=== PATIENT | male | born 1975 | race Hispanic/Latino ===

== ENCOUNTER 2020-02-13 20:15 | Observation (INO) | payer OTHER ==
[~2020-02-13] VITALS: Ht 182.9 cm; Wt 113.4 kg
[2020-02-13] MEDS ORDERED: ACETAMINOPHEN EXTRA STRENGTH 500 MG TABLET ONE (21:02)
[2020-02-13] MEDS ORDERED: GUAIFENESIN-CODEINE 5 ML SYRUP ONE (21:03)
[2020-02-13 21:22] LABS: APPEARANCE,URINE Clear (CLEAR); BILIRUBIN,URINE Negative (NEGATIVE); COLOR,URINE Yellow (YELLOW); GLUCOSE, URINE (UA) Negative (NEGATIVE); KETONES,URINE Negative (NEGATIVE); LEUKOCYTE ESTERASE ,URINE Negative (NEGATIVE); NITRATE,URINE Negative (NEGATIVE); OCCULT BLOOD,URINE Negative (NEGATIVE); PROTEIN,URINE POS 1+ mg/dL (NEGATIVE)
[2020-02-13 21:45] LABS: BACTERIA,URINE Rare /HPF (None Seen); RBC,URINE 0-1 /HPF (0-1); SQUAMOUS EPITHELIAL CELL,UR Rare /HPF (0-2); WBC,URINE 0-1 /HPF (0-1)
[2020-02-13 21:46] LABS: MUCUS,URINE Rare LPF (None Seen)
[2020-02-13] MEDS ORDERED: DEXAMETHASONE SOD PHOSPHATE 10MG/ML 1ML VIAL ONE (22:09)
[2020-02-13] MEDS ORDERED: CEFTRIAXONE SODIUM 1 GM ONE (22:10)
[2020-02-13] MEDS ORDERED: AZITHROMYCIN 250 MG TABLET PO ONE (22:10)
[2020-02-13 22:44] LABS: BASOPHILS % (AUTO) 0.1 % (0.0-5.0); EOSINOPHILS % (AUTO) 1.5 % (0.0-8.0); HEMATOCRIT 46.6 % (42-54); LYMPHOCYTES % (AUTO) 25.1 % (21.0-51.0); MEAN CORPUSCULAR HEMOGLOBIN 30.6 pg (27.0-33.0); MEAN CORPUSCULAR VOLUME 87.6 fL (79-99); MONOCYTES % (AUTO) 6.9 % (3.0-13.0); NEUTROPHILS % (AUTO) 65.9 % (40.0-77.0); PLATELET COUNT (AUTO) 300 K/uL (130-400); RED BLOOD CELL COUNT(AUTO) 5.32 MIL/uL (4.50-6.20); RED CELL DISTRIBUTION WIDTH 12.1 % (11.0-15.5)
[2020-02-13 23:01] LABS: CREATININE 1.1 mg/dL (0.5-1.5)
[2020-02-13 23:06] LABS: ALBUMIN 3.5 g/dL (3.5-5.0); BILIRUBIN,TOTAL 0.4 mg/dL (0.2-1.0); CRP QUANTITATIVE 40.2 mg/L (0.00-9.0); TOTAL PROTEIN, SERUM 8.3 g/dL (6.0-8.3)
[2020-02-13 23:10] LABS: B-TYPE NATRIURETIC PEPTIDE 19 pg/mL (0-100)
[2020-02-13 23:34] LABS: ABG BASE EXCESS -0.6 mmol/L (-2.0-3.0); ABG OXYGEN SATURATION 94.5 % (95.0-99.0); ABG PCO2 35 mmHg (35-48)
[2020-02-13] MEDS ORDERED: IOHEXOL-350 75 ML VIAL IV ONE (23:56)
[2020-02-14] MEDS ORDERED: ONDANSETRON HCL 4 MG/2 ML VIAL IV PRN (02:00)
[2020-02-14] MEDS ORDERED: AZITHROMYCIN 500MG+NS 250ML 250 ML IV SCH (02:00)
[2020-02-14] MEDS ORDERED: CEFTRIAXONE SODIUM 1 GM IV SCH (02:00)
[2020-02-14] MEDS ORDERED: PHARMACY COMMUNICATION**REMDESIVIR ORDER MISC SCH (02:00)
[2020-02-14] MEDS ORDERED: ALBUTEROL INHALER 90MCG/INH IH PRN (02:00)
[2020-02-14] MEDS ORDERED: LACTULOSE 20 GM/30 ML UDCUP PO PRN (02:00)
[2020-02-14] MEDS ORDERED: ERGOCALCIFEROL (VITAMIN D2) 50,000 UNIT CAPSULE PO ONE (02:00)
[2020-02-14] MEDS ORDERED: ACETAMINOPHEN 325 MG TAB PO PRN ×2 (02:00)
[2020-02-14 02:13] LABS: CHOLESTEROL 94 mg/dL (<200); HDL CHOLESTEROL 36 mg/dL (29-71); LDL DIRECT 52 mg/dL (0-99); TRIGLYCERIDES 79 mg/dL (30-200)
[2020-02-14] MEDS ORDERED: GUAIFENESIN-DM 200/20 MG 10 ML PO PRN (02:30)
[2020-02-14] MEDS ORDERED: ZINC SULFATE 220 CAPSULE ONE ×2 (04:21→08:06)
[2020-02-14] MEDS ORDERED: ASCORBIC ACID 500 MG TAB ONE ×2 (04:21→08:05)
[2020-02-14] MEDS ORDERED: ERGOCALCIFEROL (VITAMIN D2) 50,000 UNIT CAPSULE ONE (04:21)
[2020-02-14] MEDS ORDERED: AZITHROMYCIN 500MG+NS 250ML 250 ML IV ONE (04:22)
[2020-02-14 05:43] LABS: RAPID GROUP A STREP NEGATIVE (NEGATIVE)
[2020-02-14] MEDS ORDERED: FAMOTIDINE 20MG TAB 20 MG TAB ONE (08:06)
[2020-02-14] MEDS ORDERED: DEXAMETHASONE 4 MG TAB ONE (08:06)
[2020-02-14] MEDS ORDERED: ENOXAPARIN SODIUM 40 MG/0.4 ML SYRINGE SQ ONE (08:06)
[2020-02-14] MEDS ORDERED: ENOXAPARIN SODIUM 40 MG/0.4 ML SYRINGE SQ SCH (09:00)
[2020-02-14] MEDS ORDERED: FAMOTIDINE 20MG TAB 20 MG TAB PO SCH (09:00)
[2020-02-14] MEDS ORDERED: ASCORBIC ACID 500 MG TAB PO SCH (09:00)
[2020-02-14] MEDS ORDERED: DEXAMETHASONE 4 MG TAB PO SCH (09:00)
[2020-02-14] MEDS ORDERED: ZINC SULFATE 220 CAPSULE PO SCH (09:00)
[2020-02-14] MEDS ORDERED: GUAI5SYR PO (18:25)
[2020-02-14] MEDS ORDERED: DEXA4 PO (18:25)
[2020-02-14] MEDS ORDERED: APIX2.5T PO (19:31)
== END 2020-02-14 19:51 | disposition home or self-care (01) ==
LOC: EDH 20:15 → EDHIP 02-14 01:52 → INTOOBSV 02-14 01:52
PROVIDERS: ADMIT Internal Medicine; ATTEND Internal Medicine
DX: U07.1 COVID-19 (principal); J12.89 Other viral pneumonia; R06.03 Acute respiratory distress; R09.02 Hypoxemia; R79.1 Abnormal coagulation profile; R79.89 Other specified abnormal findings of blood chemistry; G47.33 Obstructive sleep apnea (adult) (pediatric); E11.9 Type 2 diabetes mellitus without complications; I10 Essential (primary) hypertension; Z79.899 Other long term (current) drug therapy
CPT/HCPCS: 36415; 71045; 71275; 80053; 80061; 81001; 82728; 82803; 83880; 84145; 84484 ×4; 85025; 85378; 86140; 87426; 87804 ×2; 87880; 93005 ×2; 99285; G0378 ×18; J0456; J0696; J1100; J1650; J8540; Q9967